=== PATIENT | female | born 2000 | race Caucasian/White ===

== ENCOUNTER 2021-03-22 09:44 | Emergency (ER) | payer OTHER, SELFPAY ==
[2021-03-22 09:58] VITALS: BP 108/54; PULSE 83; RESP 16; TEMP 36.4; O2SAT 100
--- NOTE | 2021-03-22 09:58 | ED.FEMALEGU ---
HPI - Female Genitourinary General Chief complaint: Urogenital-Female <Barb Case NP - Last Filed: 03/24/21 15:43> Stated complaint: uti <Barb Case NP - Last Filed: 03/24/21 15:43> Time Seen by Provider: 03/22/21 09:58 <Barb Case NP - Last Filed: 03/24/21 15:43> Source: patient, RN notes reviewed and old records reviewed <Barb Case NP - Last Filed: 03/24/21 15:43> Mode of arrival: ambulatory <Barb Case NP - Last Filed: 03/24/21 15:43> Limitations: no limitations <Barb Case NP - Last Filed: 03/24/21 15:43> History of Present Illness HPI Narrative: 21-year-old female who presents to [facility] with complaints of urinary frequency, painful urination with some intermittent incontinency for the past 2 days. Patient states that her urine also has strange odor. Patient denies any vaginal drainage, itching or any concern for STD exposure. She denies any fevers, chills or sweats, denies any nausea or vomiting or any acute abdominal pain, reports some flank pain bilaterally. She verbalizes history of frequent urinary tract infections. Patient has not taken any OTC AZO. <Barb Case NP - Last Filed: 03/24/21 15:43> MD elicited complaint: UTI <Barb Case NP - Last Filed: 03/24/21 15:43> Pertinent past history: recurrent UTIs <Barb Case NP - Last Filed: 03/24/21 15:43> Female Urogenital Radiation: Suprapubic <Barb Case NP - Last Filed: 03/24/21 15:43> Severity scale (1-10): 4 <Barb Case NP - Last Filed: 03/24/21 15:43> Quality of pain: other (pressure) <Barb Case NP - Last Filed: 03/24/21 15:43> Urinary symptoms: Dysuria, Urgency (incontinency), Frequency and Foul Smelling Urine <Barb Case NP - Last Filed: 03/24/21 15:43> Treatment prior to arrival: none <Barb Case NP - Last Filed: 03/24/21 15:43> Related Data Home medications: Home Medications Medication Instructions Recorded Confirmed Abilify 03/22/21 Lamictal 03/22/21 Seroquel 03/22/21 Zyprexa 03/22/21 hydroxyzine HCl 03/22/21 lithium carbonate 03/22/21 propranolol 03/22/21 <Barb Case NP - Last Filed: 03/24/21 15:43> Allergies/Adverse reactions: Allergies Allergy/AdvReac Type Severity Reaction Status Date / Time Penicillins Allergy Intermediate Hives Verified 03/22/21 10:07 shellfish derived Allergy Intermediate Hives Verified 03/22/21 10:07 TREE POLLEN Allergy Intermediate ITCHING Uncoded 03/22/21 10:07 <Barb Case NP - Last Filed: 03/24/21 15:43> Review of Systems Review of Systems: Narrative: CONSTITUTIONAL: Denies fever, chills, or sweats. EYES: Denies visual changes, redness, or discharge. ENT: Denies rhinorrhea, congestion, sore throat, or otalgia. CARDIOVASCULAR: Denies chest pain, palpitations, or edema. RESPIRATORY: Denies cough or dyspnea. GASTROINTESTINAL: Denies abdominal pain, nausea, vomiting, or diarrhea. GENITOURINARY: Positive for dysuria, urinary incontinency, frequency of urination,painful with foul odor. SKIN: Denies rash or itching. MUSCULOSKELETAL: Denies back pain, joint pain, or myalgia. NEUROLOGIC: Denies headache, numbness, or weakness. PSYCHIATRIC: positive for anxiety or depression. <Barb Case NP - Last Filed: 03/24/21 15:43> All systems reviewed & are unremarkable except as noted in HPI and below <Barb Case NP - Last Filed: 03/24/21 15:43> PMFSH Past Medical History Medical History: Medical History (Updated 03/23/21 @ 00:00 by Background Daemon) Bipolar 2 disorder UTI (urinary tract infection) <Barb Case NP - Last Filed: 03/24/21 15:43> Surgical History Surgical History: Surgical History (Updated 03/22/21 @ 10:35 by Barb Case NP) No history of previous surgery <Barb Case NP - Last Filed: 03/24/21 15:43> Family History F
== END 2021-03-22 10:32 | disposition home or self-care (01) ==
PROVIDERS: Emergency Provider Registered Nurse
DX: N39.0 Urinary tract infection, site not specified (principal)
CPT/HCPCS: 81003; 87077; 87086; 87088; 87186; 99213; G0463

== ENCOUNTER 2021-09-17 19:05 | Emergency (ER) | payer OTHER, SELFPAY ==
[2021-09-17 19:23] VITALS: BP 116/58; PULSE 99; RESP 16; TEMP 37.1; O2SAT 98
--- NOTE | 2021-09-17 19:42 | ED.FEMALEGU ---
HPI - Female Genitourinary General Stated complaint: UTI Time Seen by Provider: 09/17/21 19:37 Source: patient and RN notes reviewed Mode of arrival: ambulatory Limitations: no limitations History of Present Illness HPI Narrative: Patient presents today complaining of dysuria and urinary frequency that started this morning. Denies hematuria or abdominal pain. She is also complaining of some swelling around her vagina that she is unsure if it is normal or not. She is currently on her menstrual cycle. MD elicited complaint: dysuria Related Data Home Medications Medication Instructions Recorded Confirmed Abilify 03/22/21 Lamictal 03/22/21 Seroquel 03/22/21 Zyprexa 03/22/21 hydroxyzine HCl 03/22/21 lithium carbonate 03/22/21 propranolol 03/22/21 Allergies Allergy/AdvReac Type Severity Reaction Status Date / Time Penicillins Allergy Intermediate Hives Verified 03/22/21 10:07 shellfish derived Allergy Intermediate Hives Verified 03/22/21 10:07 TREE POLLEN Allergy Intermediate ITCHING Uncoded 03/22/21 10:07 Review of Systems Review of Systems: CONSTITUTIONAL: Denies body aches, fever, chills, or sweats. EYES: Denies visual changes, redness, or discharge. ENT: Denies rhinorrhea, congestion, sore throat, or otalgia. CARDIOVASCULAR: Denies chest pain, palpitations, or edema. RESPIRATORY: Denies cough or dyspnea. GASTROINTESTINAL: Denies abdominal pain, nausea, vomiting, or diarrhea. GENITOURINARY: + Dysuria, frequency, vaginal swelling. SKIN: Denies rash, itching, or wounds. MUSCULOSKELETAL: Denies back pain, joint pain, or myalgia. NEUROLOGIC: Denies headache, numbness, tingling, or weakness. PSYCH: Denies depression or anxiety. [facility] Past Medical History Medical History Bipolar 2 disorder UTI (urinary tract infection) Surgical History Surgical History No history of previous surgery Family History Family History Grandparent Diabetes mellitus Carcinoma of colon Mother Diabetes mellitus Social History Social History Tobacco type: e-cigarettes/vaping Alcohol intake: current Alcohol use details: rare social Substance use: former Substance use type: marijuana Other substance usage details: CBD oil Delta THC Gender identity (if verbalized by the patient): Female Comments At time of signature, I have reviewed and agree with nursing past medical, surgical, social and family history unless otherwise noted. Please see nursing chart for further information. There is no relevant family history pertinent to the presenting complaint Exam Narrative: GENERAL: Well-appearing, well-nourished, and in no acute distress. HEAD: Normocephalic, atraumatic. EYES: EOMI. No redness or drainage. Conjunctivae normal. ENT: Mucous membranes pink and moist. NECK: Normal AROM. CHEST: No respiratory distress. ABDOMEN: Soft, nontender, nondistended, normal active bowel sounds. :Normal vagina MUSCULOSKELETAL: No bony tenderness. EXTREMITIES: Normal range of motion. No edema. SKIN: Warm, dry, no rash. Capillary refill normal. Normal skin turgor. NEURO: No focal deficits. Alert and oriented x3. Gait steady. PSYCH: Normal affect. No signs of depression or anxiety. Course Vital Signs Vital signs: Vital Signs Temperature 98.7 F 09/17/21 19:23 Pulse Rate 99 09/17/21 19:23 Respiratory Rate 16 09/17/21 19:23 Blood Pressure 116/58 L 09/17/21 19:23 Pulse Oximetry 98 09/17/21 19:23 Temperature 98.7 F 09/17/21 19:23 Pulse Rate 99 09/17/21 19:23 Respiratory Rate 16 09/17/21 19:23 Blood Pressure 116/58 L 09/17/21 19:23 Pulse Oximetry 98 09/17/21 19:23 Reviewed MDM - Female Genitourinary Differential Diagnosis Differ
== END 2021-09-17 19:51 | disposition home or self-care (01) ==
PROVIDERS: Emergency Provider Nurse Practitioner
DX: N30.01 Acute cystitis with hematuria (principal); F17.290 Nicotine dependence, other tobacco product, uncomplicated
CPT/HCPCS: 81003; 87086; 99213; G0463

== ENCOUNTER 2022-10-08 17:14 | Emergency (ER) | payer OTHER, SELFPAY ==
--- NOTE | 2022-10-08 17:21 | ED.URI ---
HPI - URI/Sore Throat General Chief Complaint: Upper Respiratory Infection Stated Complaint: flu/cold sx Time Seen by Provider: 10/08/22 17:58 Source: patient and RN notes reviewed Mode of arrival: ambulatory Limitations: no limitations History of Present Illness HPI Narrative: 22-year-old female presents concern for 4 day history of sinus congestion, drainage, sore throat. She reports she has been taking Benadryl and Motrin with little relief. She reports family members had similar symptoms last week MD elicited complaint: sore throat and nasal congestion Related Data Home Medications Medication Instructions Recorded Confirmed escitalopram oxalate 20 mg tablet 20 mg PO DAILY 10/08/22 10/08/22 quetiapine 150 mg tablet,extended 150 mg PO DAILY 10/08/22 10/08/22 release 24 hr Allergies Allergy/AdvReac Type Severity Reaction Status Date / Time Penicillins Allergy Intermediate Hives Verified 10/08/22 17:24 shellfish derived Allergy Intermediate Hives Verified 10/08/22 17:24 TREE POLLEN Allergy Intermediate ITCHING Uncoded 10/08/22 17:24 Review of Systems Review of Systems: CONSTITUTIONAL: Denies malaise, chills, sweats, or fever. EYES: Denies visual changes, redness, or discharge. ENT: Reports rhinorrhea, congestion, and sore throat. CARDIOVASCULAR: Denies chest pain, palpitations, or edema. RESPIRATORY: Denies cough. Denies dyspnea. GASTROINTESTINAL: Denies abdominal pain, nausea, vomiting, diarrhea SKIN: Denies rash or itching. MUSCULOSKELETAL: Denies myalgia. NEUROLOGIC: Denies headache. All systems reviewed & are unremarkable except as noted in HPI and below PMFSH Past Medical History Medical History Bipolar 2 disorder UTI (urinary tract infection) Surgical History Surgical History No history of previous surgery Family History Family History Grandparent Diabetes mellitus Carcinoma of colon Mother Diabetes mellitus Social History Social History Tobacco type: e-cigarettes/vaping Alcohol intake: current Alcohol use details: rare social Substance use: former Substance use type: marijuana Other substance usage details: CBD oil Delta THC Gender identity (if verbalized by the patient): Female Comments At time of signature, agree with nursing past medical, surgical, social and family history. There is no relevant family history pertinent to the presenting complaint Exam Narrative: GENERAL: Well-appearing, well-nourished, and in no acute distress. HEAD: Normocephalic EYES: PERRLA, conjunctivae clear ENT: Nares clear, turbinates edematous and erythematous, clear discharge. Mucous membranes moist. TM pearly banerjee with sharp light reflex bilaterally; no tragal tenderness. Oropharynx not erythematous without lesions. Tonsils not enlarged and without exudate, no drooling, no hoarseness, no trismus, uvula midline. NECK: Supple. No lymphadenopathy CHEST: Clear to auscultation, breath sounds equal. No wheezing, rhonchi, rales, or stridor. No respiratory distress, speaks in full sentences. HEART: Regular rate and rhythm. No murmur heard. SKIN: Warm, dry, no rash. NEURO: Alert and oriented x3. PSYCH: Normal mood and affect Course Course Emergency Course: Patient is aware of diagnosis, understands and agrees to treatment plan. Anticipatory guidance given. Patient agrees to follow-up as directed and is aware of reasons to seek care at the emergency department. Portions of this record may have been created with voice recognition software Level of Care: [facility] Visit Vital Signs Vital signs: Reviewed. MDM - URI/Sore Throat MDM Narrative Medical decision making narrative: Differential diagnosis considered: Roberts virus, strep pharyngitis, allergic r
[2022-10-08 17:30] VITALS: BP 118/51; PULSE 81; RESP 12; TEMP 36.8; O2SAT 100
== END 2022-10-08 18:10 | disposition home or self-care (01) ==
PROVIDERS: Emergency Provider Nurse Practitioner
DX: J06.9 Acute upper respiratory infection, unspecified (principal); Z20.822 Contact with and (suspected) exposure to COVID-19; F17.290 Nicotine dependence, other tobacco product, uncomplicated; F31.81 Bipolar II disorder
CPT/HCPCS: 87081; 87426; 87804; 87880; 99213; C9803; G0463

== ENCOUNTER 2022-12-18 16:02 | Emergency (ER) | payer OTHER, SELFPAY ==
--- NOTE | 2022-12-18 16:04 | ED.GENADULT ---
HPI - General Adult General Chief complaint: Unspecified Stated complaint: refill Time Seen by Provider: 12/18/22 16:10 Source: patient, RN notes reviewed and old records reviewed Mode of arrival: ambulatory Limitations: no limitations History of Present Illness HPI narrative: 22-year-old female presents to the [facility] with request to have medications refilled that she has not taken recently. States she does not want to go back to the psychiatrist at [facility]. Tried contacting her primary care provider. Last fill of her escitalopram was October 04, 2022. Has not taken the escitalopram since early October. last fill of her Seroquel was July 27, 2022. Has not taken Seroquel since 1st week in August. Reports that she has been having trouble sleeping Currently denies suicidal or homicidal feelings Related Data Home Medications Medication Instructions Recorded Confirmed escitalopram oxalate 20 mg tablet 20 mg PO DAILY 10/08/22 10/08/22 quetiapine 150 mg tablet,extended 150 mg PO DAILY 10/08/22 10/08/22 release 24 hr Allergies Allergy/AdvReac Type Severity Reaction Status Date / Time Penicillins Allergy Intermediate Hives Verified 12/18/22 16:10 shellfish derived Allergy Intermediate Hives Verified 12/18/22 16:10 TREE POLLEN Allergy Intermediate ITCHING Uncoded 12/18/22 16:10 Review of Systems Review of Systems: All systems reviewed & are unremarkable except as noted in HPI and below Constitutional: Constitutional: Reports no additional constitutional complaints Eyes: Eyes: Reports no additional eye complaints ENT: Reports system reviewed and no additional complaints, except as documented Cardiovascular: Cardiovascular: Reports no additional cardiovascular complaints, Denies chest pain and Denies dyspnea Respiratory: Respiratory: Reports no additional respiratory complaints, Denies chest congestion, Denies cough and Denies dyspnea Gastrointestinal: Gastrointestinal: Reports no additional gastrointestinal complaints, Denies abdominal pain, Denies nausea and Denies vomiting Musculoskeletal: Musculoskeletal: Reports no additional musculoskeletal complaints Integumentary/Breasts: Skin/Breast: Reports system reviewed and no additional complaints, except as docu Neurologic: Reports system reviewed and no additional complaints, except as documented Psychiatric: Psychiatric: Reports as per HPI Allergic/Immunologic: Allergic/Immunologic: Reports no additional allergic/immunologic complaints PMFSH Past Medical History Medical History Bipolar 2 disorder UTI (urinary tract infection) Surgical History Surgical History No history of previous surgery Family History Family History Grandparent Diabetes mellitus Carcinoma of colon Mother Diabetes mellitus Social History Social History Tobacco type: e-cigarettes/vaping Alcohol intake: current Alcohol use details: rare social Substance use: former Substance use type: marijuana Other substance usage details: CBD oil Delta THC Living arrangements: with family Gender identity (if verbalized by the patient): Female Comments At the time of my signature, I reviewed and agree with the nursing past medical, surgical, social, and family history. There is no relevant family history pertinent to the patient complaint. Exam Const: General: cooperative, healthy appearing, comfortable, no acute distress, well developed, alert and well nourished Nutritional Appearance: well nourished Orientation/consciousness: patient oriented x3 Limitations: no limitations HENMT: Head: normal to inspection Ears: hearing grossly normal bilaterally and external ears normal Face/Nose/Sinus: Normal external nose pre
[2022-12-18 16:09] VITALS: BP 145/73; PULSE 91; RESP 16; TEMP 37.3; O2SAT 99
== END 2022-12-18 16:23 | disposition home or self-care (01) ==
PROVIDERS: Emergency Provider Nurse Practitioner; PCP Physician Assistant
DX: F31.81 Bipolar II disorder (principal); F17.290 Nicotine dependence, other tobacco product, uncomplicated
CPT/HCPCS: 99211; G0463

== ENCOUNTER 2024-04-16 13:22 | Emergency (ER) | payer OTHER, SELFPAY ==
[2024-04-16 13:26] VITALS: BP 99/60; PULSE 78; RESP 14; TEMP 36.4; O2SAT 100
--- NOTE | 2024-04-16 13:35 | ED.URI ---
HPI - URI/Sore Throat General Chief Complaint: Upper Respiratory Infection Stated Complaint: throat History of Present Illness HPI Narrative: Patient presents with a sore throat. No fever no body aches no trouble swallowing no drooling. Patient states she woke up this morning with a sore throat. Related Data Home Medications Medication Instructions Recorded Confirmed escitalopram oxalate 20 mg tablet 20 mg PO DAILY 10/08/22 10/08/22 quetiapine 150 mg tablet,extended 150 mg PO DAILY 10/08/22 10/08/22 release 24 hr Allergies Allergy/AdvReac Type Severity Reaction Status Date / Time Penicillins Allergy Intermediate Hives Verified 12/18/22 16:10 shellfish derived Allergy Intermediate Hives Verified 12/18/22 16:10 TREE POLLEN Allergy Intermediate ITCHING Uncoded 12/18/22 16:10 Review of Systems Review of Systems: CONSTITUTIONAL: Denies chills, or sweats. Reports fever and generalized body aches EYES: Denies visual changes, redness, or discharge. ENT: Denies otalgia. Reports nasal congestion runny nose and sore throat CARDIOVASCULAR: Denies chest pain, palpitations, or edema. RESPIRATORY: Denies dyspnea. Reports occasional cough GASTROINTESTINAL: Denies abdominal pain, nausea, vomiting, or diarrhea. GENITOURINARY: Denies dysuria or hematuria. SKIN: Denies rash or itching. MUSCULOSKELETAL: Denies back pain, joint pain, or myalgia. Reports generalized body aches NEUROLOGIC: Denies headache, numbness, or weakness. PSYCHIATRIC: Denies anxiety or depression. [facility] Past Medical History Medical History Bipolar 2 disorder UTI (urinary tract infection) Surgical History Surgical History No history of previous surgery Family History Family History Grandparent Diabetes mellitus Carcinoma of colon Mother Diabetes mellitus Social History Social History Tobacco type: e-cigarettes/vaping Alcohol intake: current Alcohol use details: rare social Substance use: former Substance use type: marijuana Other substance usage details: CBD oil Delta THC Living arrangements: with family Gender identity (if verbalized by the patient): Female Comments At time of signature, agree with nursing past medical, surgical, social and family history. There is no relevant family history pertinent to the presenting complaint Exam Narrative: The patient is a well-developed, well-nourished in no acute distress. SKIN: Skin is warm and dry without erythema, swelling or exudate. There is good turgor. No tenting. HEAD: Atraumatic. Normocephalic. No temporal or scalp tenderness. EYES: Moist and bright. Sclera and conjunctivae normal. No discharge. PERRLA. Extraocular motions intact. Gross visual acuity intact. EARS: Pinna is normal shape and contour. Clear external auditory canals. TM pearly townsend with good cone of light, no erythema or suppuration. Bilateral cerumen noted no gross hearing deficit. NOSE: pink, moist mucosa with good air movement. Clear rhinorrhea without nasal flaring. Septum midline. Mouth: moist mucous membranes. THROAT; mild erythema noted to posterior oropharynx with moderate postnasal drainage. Without exudate or ulceration.. Uvula midline. Normal movement of soft palate. NECK: Supple and nontender with full range of motion without discomfort. No meningeal signs. LUNGS: Equal and bilateral breath sounds without wheezes, rales or rhonchi. CHEST: The chest wall is without retractions or use of accessory muscles. HEART: Has a regular rate and rhythm without murmur, gallops, click or rub. ABDOMEN: Soft, nontender with positive active bowel sounds. No rebound tenderness. EXTREMITIES: Without cyanosis, clubbing or edema. Equal 2+ distal pulses and 2 second capillary refill noted. NEUROLOG
[2024-04-16 13:43] LABS: EDSTREPNEGPOS1 Presumptive Negative
== END 2024-04-16 13:46 | disposition home or self-care (01) ==
PROVIDERS: Emergency Provider Nurse Practitioner Family
DX: J02.9 Acute pharyngitis, unspecified (principal); F31.81 Bipolar II disorder
CPT/HCPCS: 87081; 87880; 99213; G0463